=== PATIENT | male | born 1960 | race Caucasian/White ===

== ENCOUNTER → 2019-02-22 12:06 | Outpatient (CLI) | payer OTHER, SELFPAY ==
[2019-02-22 13:20] LABS: Hematocrit 41.3 % (40-54); Hemoglobin 13.4 g/dL (13.0-16.5)
[2019-02-22 13:35] LABS: ALB/GLOB Ratio 0.9 RATIO (0.9-2.4); AST(SGOT) 21 U/L (15-37); Alanine Aminotransfer ALT/SGPT 46 U/L (16-61); Albumin, Serum 3.4 g/dL (3.2-5.0); Alkaline Phosphatase 121 U/L (45-117); Anion Gap 6 (5-15); BUN 23 mg/dL (7-18); BUN/Creat Ratio 16.3 RATIO (10-20); Calcium,Total 8.6 mg/dL (8.5-10.1); Chloride 102 mmol/L (98-107); Creatinine, Serum 1.41 mg/dL (0.70-1.30); EST Glomerular Filtration Rate 54 mL/min (>60); Est Glom Filt Rate - Afr Amer 66 mL/min (>60); Globulin 3.8 g/dL (2.2-4.2); Glucose 157 mg/dL (74-106); PSA,Total- Diagnostic 1.66 ng/mL (0.0-4.0); Potassium 3.3 mmol/L (3.5-5.1); Protein, Total 7.2 g/dL (6.4-8.2); Sodium Level 140 mmol/L (136-145)
[2019-02-24 14:07] LABS: Testosterone, Free 4.36 ng/dL (5.00-21.00)
[2019-02-24 23:23] LABS: Testosterone, % Free 2.66 % (1.50-4.20); Testosterone, Total 164 ng/dL (264-916)
== END ==
PROVIDERS: Referring Provider Internal Medicine Endocrinology, Diabetes & Metabolism; Visit Provider Internal Medicine Endocrinology, Diabetes & Metabolism
DX: E29.1 Testicular hypofunction (principal)
CPT/HCPCS: 36415; 80053; 84153; 84402; 84403; 85014; 85018